=== PATIENT | male | born 1950 | race Caucasian/White ===

== ENCOUNTER 2021-03-19 00:51 | Inpatient (IN) | payer MEDICARE, OTHER, SELFPAY ==
[2021-03-19] VITALS (53 sets, daily range): BP systolic 43–164; BP diastolic 20–143; PULSE 41–121; RESP 11–20; TEMP 33.4–39.2; O2SAT 86–100; BMI 24.3
--- NOTE | 2021-03-19 01:22 | ED.RN ---
AT BEDSIDE, STATES PATIENT WAS IN BED AND SUDDENLY STARTED SNORING REALLY LOUD AND THEN YELLED OUT TWICE. WHEN WENT BACK TO BEDROOM STATES PATIENT WAS DRENCHED IN SWEAT AND DID NOT LOOK GOOD. STATES SHE TRIED TO FEEL A PULSE AND COULD NOT AND CALLED 911 AT THAT POINT.
--- NOTE | 2021-03-19 01:27 | CT_ITS ---
STUDY: CT BRAIN WITHOUT CONTRAST REASON FOR EXAM: Male, 71 years old. Altered mental status RADIATION DOSAGE (If Supplied By Facility): CTDIvol = ( 44.99 ) mGy, DLP = ( 897.35 ) mGycm TECHNIQUE: Transaxial CT imaging of the brain was performed without administration of intravenous contrast material. Individualized dose optimization techniques were used for this CT. COMPARISON: No relevant priors. FINDINGS: Normal soft tissue structures. Normal calvarium. Normal size ventricles and extra-axial spaces for the patient''s age. Normal white matter tracts of the cerebral hemispheres. Normal basal ganglia and thalami. Normal brainstem. Normal cerebellum. There may be a tiny subdural hematoma over the right opercular area. There are no findings of an acute ischemic infarction. Branch-white matter differentiation is maintained, but appears blunted. Scattered paranasal sinus mucosal thickening. Bilateral ocular lens extractions. CT/Brain/Head without Contrast IMPRESSION: Diffusely blunted branch-white matter differentiation is suspicious for developing generalized cerebral edema. Suspect tiny subdural hematoma over the right opercular area. Electronically Signed: Golden Lam MD at 3:08 EDT Tel , Service support ,
--- NOTE | 2021-03-19 01:27 | RAD_ITS ---
STUDY: X-RAY CHEST REASON FOR EXAM: Male, 71 years old. Dyspnea TECHNIQUE: Portable, upright, AP chest radiograph COMPARISON: None. FINDINGS: Defibrillator pads overlie the central chest and obscure the damien. Bilateral streaky perihilar opacities. There is no demonstrated pleural abnormality. Normal size heart. Normal mediastinum and samara. Normal visualized pulmonary arteries. There is no demonstrated abnormality of the visualized soft tissue structures of the upper abdomen. RAD/Chest 1 View (Portable) IMPRESSION: Endotracheal tube terminates between the clavicle heads. Enteric tube terminates over the GE junction. Right IJ central catheter terminates over the mid to lower SVC. Bilateral perihilar opacities may be edema secondary to recent cardiac arrest. Electronically Signed: Golden Lam MD at 3:29 EDT Tel , Service support ,
--- NOTE | 2021-03-19 01:28 | EKG12_ITS ---
Test Reason : DYSRHYTHMIA Blood Pressure : / mmHG Vent. Rate : 075 BPM Atrial Rate : 075 BPM P-R Int : 162 ms QRS Dur : 082 ms QT Int : 436 ms P-R-T Axes : 063 095 133 degrees QTc Int : 486 ms Normal sinus rhythm Marked ST abnormality, possible inferior subendocardial injury Marked ST abnormality, possible anterior subendocardial injury Prolonged QT Abnormal ECG Confirmed by JAXON BRUCE, FLO ([id number]), manager editorial FABI ANN ([id number]) on 03/26/2021 9:46:38 AM Referred By: ASHLEY Confirmed By:FLO COATES MD
[2021-03-19] MEDS: Norepinephrine 8 mg/250 mL 0.9% NS 9.4 MG CONT INF (01:36)
[2021-03-19] MEDS: 0.9% Normal Saline 1,000 ML 999 ML IV ×2 (01:37→01:38)
[2021-03-19 01:39] LABS: Absolute Lymphocyte Count 3.47 X10^3/uL (0.83-4.51); Absolute Neutrophil Count 0.8 X10^3/uL (2.0-7.7); Basophil# 0.01 X10^3/uL; Basophil% 0.2 % (0-1); Eosinophil# 0.01 X10^3/uL; Eosinophils% 0.2 % (0-5); Hemoglobin 12.1 g/dL (13.0-16.5); Lymphocyte # 3.47 X10^3/ul (0.83-4.51); Lymphocyte % 73.2 % (19-41); Mean Corp Hgb Conc 30.3 g/dL (32-36); Mean Corpuscular Hgb 29.7 pg (27.0-32.0); Monocyte# 0.42 X10^3/uL; Monocyte% 8.9 % (0-10); NRBC Flagged by Analyzer 0.4 % (0-5); Neutrophil # 0.75 X10^3/uL (2.7-7.7); Neutrophil % 15.8 % (47-70); POSITIVE DIFFERENTIAL YES; Platelet Count 116 K/mm3 (150-450); RBC Distribution Width CV 12.7 % (11.6-14.6); RBC Distribution Width SD 45.4 fl (35.1-43.9); Red Blood Count 4.08 M/mm3 (4.6-6.2); White Blood Count 4.7 K/mm3 (4.4-11.0)
[2021-03-19 01:42] LABS: International Normalized Ratio 1.4; Prothrombin Time (Protime)PT. 16.1 SECONDS (11.7-14.9)
[2021-03-19 01:43] LABS: Partial Thromboplast Time 47.6 Seconds (24.1-36.2)
[2021-03-19 01:52] LABS: Differential Indicated SCAN CRITERIA MET
[2021-03-19 01:53] LABS: Atypical Lymphocyte 1+ %
[2021-03-19 01:56] LABS: ALB/GLOB Ratio 0.7 RATIO (0.9-2.4); AST(SGOT) 85 U/L (15-37); Alanine Aminotransfer ALT/SGPT 99 U/L (16-61); Albumin, Serum 2.6 g/dL (3.2-5.0); Alkaline Phosphatase 105 U/L (45-117); Anion Gap 15 (5-15); BUN 31 mg/dL (7-18); BUN/Creat Ratio 16.2 RATIO (10-20); Calcium,Total 8.5 mg/dL (8.5-10.1); Chloride 106 mmol/L (98-107); Creatinine, Serum 1.91 mg/dL (0.70-1.30); EST Glomerular Filtration Rate 37 mL/min (>60); Est Glom Filt Rate - Afr Amer 45 mL/min (>60); Globulin 3.7 g/dL (2.2-4.2); Glucose 338 mg/dL (74-106); Potassium 3.8 mmol/L (3.5-5.1); Protein, Total 6.3 g/dL (6.4-8.2); Sodium Level 140 mmol/L (136-145); Troponin-I HS 21 pg/mL (3.0-78.0)
[2021-03-19 02:12] LABS: Lactic Acid 7.5 mmol/L (0.4-1.9)
--- NOTE | 2021-03-19 02:18 | EX.ED.CRITCA ---
HPI History of Present Illness Chief Complaint: CPR Informant: spouse/S.O. and EMS Onset/Context/Timing Onset: Today Context: Sudden Onset Timing: Continuous Narrative Narrative: Patient presents in cardiac arrest. states that she heard the patient snoring louder than usual. She went back to check on him and noticed he was unresponsive. She attempted to feel for a pulse and could not find any. She called 911 and upon EMS arrival patient was found to be unresponsive and pulseless. EMS followed ACLS protocols and defibrillated the patient for V. fib. Patient returned to [facility] after defibrillation. EMS administered multiple doses of epinephrine. CPR was in progress when EMS arrived to the emergency department. [facility] Medical History Arrhythmia Hypertension Home Medications atorvastatin 20 mg PO DAILY 03/19/21 [History Last Taken Unknown] diltiazem HCl 240 mg PO DAILY 03/19/21 [History Last Taken Unknown] lisinopril 40 mg PO DAILY 03/19/21 [History Last Taken Unknown] spironolactone 25 mg PO DAILY 03/19/21 [History Last Taken Unknown] tadalafil 5 mg PO DAILY 03/19/21 [History Last Taken Unknown] Allergy/AdvReac Type Severity Reaction Status Date / Time No Known Allergies Allergy Verified 03/19/21 01:30 Social History Smoking Status: Never smoker ROS ROS ED Review of Systems ROS Unobtainable: due to endotracheal tube EXAM Physical Exam Const Vital Signs: 03/19/21 00:52 03/19/21 01:10 03/19/21 01:14 Temperature Temperature Source Pulse Rate 41 L 109 H Pulse Rate [4] 90 Respiratory Rate 16 Respiratory Rate [4] 18 Respiratory Pattern Blood Pressure 62/40 L 104/30 L Blood Pressure [4] 92/49 L Blood Pressure Mean 47 54 Pulse Ox 86 94 Oxygen Delivery Method Ambu-Bag Ambu-Bag Fraction of Inspired Oxygen (FIO2) 03/19/21 01:16 03/19/21 01:20 03/19/21 01:23 Temperature 95.1 F L Temperature Source Core Pulse Rate 86 92 93 Pulse Rate [4] Respiratory Rate 16 16 16 Respiratory Rate [4] Respiratory Pattern Blood Pressure 74/36 L 164/70 H 143/58 H Blood Pressure [4] Blood Pressure Mean 48 101 86 Pulse Ox 96 92 96 Oxygen Delivery Method Ambu-Bag Ambu-Bag Ambu-Bag Fraction of Inspired Oxygen (FIO2) 03/19/21 01:27 03/19/21 01:36 03/19/21 01:39 Temperature 93.8 F L Temperature Source Core Pulse Rate 83 68 Pulse Rate [4] Respiratory Rate 14 16 Respiratory Rate [4] Respiratory Pattern Normal Blood Pressure 49/31 L 43/28 L Blood Pressure [4] Blood Pressure Mean 37 33 Pulse Ox 98 100 Oxygen Delivery Method Fraction of Inspired Oxygen (FIO2) 100 03/19/21 01:43 03/19/21 01:44 03/19/21 01:49 Temperature 93.1 F L Temperature Source Core Pulse Rate 63 Pulse Rate [4] Respiratory Rate 16 Respiratory Rate [4] Respiratory Pattern Blood Pressure 60/34 L 58/39 L Blood Pressure [4] Blood Pressure Mean 42 45 Pulse Ox 100 100 Oxygen Delivery Method Mechanical Ventilator Mechanical Ventilator Fraction of Inspired Oxygen (FIO2) 60 03/19/21 01:51 03/19/21 01:55 03/19/21 02:02 Temperature Temperature Source Pulse Rate 69 78 Pulse Rate [4] Respiratory Rate 14 Respiratory Rate [4] Respiratory Pattern Blood Pressure 66/40 L 72/39 L 73/40 L Blood Pressure [4] Blood Pressure Mean 48 50 51 Pulse Ox 99 Oxygen Delivery Method Fraction of Inspired Oxygen (FIO2) 03/19/21 02:03 03/19/21 02:25 03/19/21 02:48 Temperature Temperature Source Pulse Rate 71 89 81 Pulse Rate [4] Respiratory Rate 14 14 Respiratory Rate [4] Respiratory Pattern Blood Pressure 87/47 L 112/47 L 80/47 L Blood Pressure [4] Blood Pressure Mean 60 68 58 Pulse Ox 100 100 100 Oxygen Delivery Method Mechanical Ventilator Mechanical Ventilator Fraction of Inspired Oxygen (FIO2) 60 03/19/21 02:55 03/19/21 02:57 Temperature 96.8 F L Temperature Source Core Pulse Rate 91 Pulse Rate [4] Respiratory Rate 20 H 18 Respiratory Rate [4] Respiratory Pattern Blood Pressure 121/51 H Blood Pressure [4] Blood Pressure Mean 74 Pulse Ox 98 Oxygen Delivery Method Mechanical Ventilator Fraction of Inspired Oxygen (FIO2) 40 40 Positive well nourished and well developed General Appearance ED: well developed HEENT normocephalic and atraumatic Neck supple and no JVD Resp Resp Narrative: There were no spontaneous respirations noted. There are equal breath sounds with mechanical ventilation. Cardio regular rate Rate: tachycardic GI non-distended Palpation: soft Neuro Neuro Narrative: Patient is unresponsive to verbal or painful stimuli. Skin Lesions: no lesions Rashes: no rashes MDM MDM MDM Narrative Medical decision making narrative: Upon arrival, ACLS protocols were continued. Patient was intubated with a 7.5 ET tube to 23 cm at the lip using a glide scope. Patient was given multiple doses of epinephrine, atropine, and a dose of sodium bicarbonate. Patient did have return of spontaneous circulation. Patient was started on Levophed drip. This was titrated to maintain a blood pressure greater than 100 systolic. CBC was within normal limits. Comprehensive metabolic profile showed a creatinine of 1.91 and a BUN of 31. CO2 was 19. Anion gap was 15. Glucose was 338. Initial high-sensitivity troponin was normal. PT with INR and PTT were slightly elevated with an INR of 1.4 and PTT of 47.6. Lactic acid was elevated at 7.5. was agreeable to placement of a central venous catheter. The right anterior neck was cleaned and prepped in a sterile manner. Ultrasound guidance was used to place a triple-lumen catheter in the right internal jugular vein using Seldinger technique. This was sutured in place. Chest x-ray was obtained post procedure. There is 1 view. On my interpretation, there is no pneumothorax. The central lumen catheter is in place. The endotracheal tube is in good position. The orogastric tube ends at the GE junction. There is some developing interstitial edema. Radiologist also interpreted the x-ray and agrees. CT scan of the brain was ordered and shows some developing cerebral edema. There is questionable small subdural hematoma in the right opercular area. This was interpreted by the radiologist and reviewed by myself.. Urinalysis does not show any evidence of urinary tract infection. Case was discussed with the hospitalist. She will admit the patient to her service to ICU. She recommended consulting with cardiology to see if they would recommend an amiodarone drip. Case was discussed with Dr. Velazquez. He he does recommend an amiodarone drip. Patient will be admitted to ICU. Family understands and is agreeable with the plan. All questions were answered. Lab Data Attestation: I reviewed the patient's lab results. Labs: Laboratory Results - last 24 hr 03/19/21 03/19/21 03/19/21 00:55 00:55 00:55 WBC 4.7 RBC 4.08 L Hgb 12.1 L Hct 40.0 MCV 98.0 H MCH 29.7 MCHC 30.3 L RDW Std Deviation 45.4 H RDW Coeff of Syd 12.7 Plt Count 116 L MPV 11.0 Immature Gran % (Auto) 1.700 H Neut % (Auto) 15.8 L Lymph % (Auto) 73.2 H Citrus % (Auto) 8.9 Eos % (Auto) 0.2 Baso % (Auto) 0.2 Absolute Neuts (auto) 0.8 L Absolute Lymphs (auto) 3.47 Nucleated RBC % 0.4 Atypical Lymphocytes 1+ PT 16.1 H INR 1.4 APTT 47.6 H Sodium 140 Potassium 3.8 Chloride 106 Carbon Dioxide 19.0 L Anion Gap 15 BUN 31 H Creatinine 1.91 H Estim Creat Clear Calc 36.10 Est GFR (MDRD) Af Amer 45 L Est GFR (MDRD) Non-Af 37 L BUN/Creatinine Ratio 16.2 Glucose 338 H Lactic Acid Calcium 8.5 Total Bilirubin 0.20 AST 85 H ALT 99 H Alkaline Phosphatase 105 Troponin I High Sens 21 Total Protein 6.3 L Albumin 2.6 L Globulin 3.7 Albumin/Globulin Ratio 0.7 L Urine Color Urine Clarity Urine pH Ur Specific Pavilion Urine Protein Urine Glucose (UA) Urine Ketones Urine Occult Blood Urine Nitrite Urine Bilirubin Urine Urobilinogen Ur Leukocyte Esterase Urine RBC Urine WBC Ur Squamous Epith Cells Urine Bacteria Urine Mucus 03/19/21 03/19/21 01:40 02:15 WBC RBC Hgb Hct MCV MCH MCHC RDW Std Deviation RDW Coeff of Syd Plt Count MPV Immature Gran % (Auto) Neut % (Auto) Lymph % (Auto) Citrus % (Auto) Eos % (Auto) Baso % (Auto) Absolute Neuts (auto) Absolute Lymphs (auto) Nucleated RBC % Atypical Lymphocytes PT INR APTT Sodium Potassium Chloride Carbon Dioxide Anion Gap BUN Creatinine Estim Creat Clear Calc Est GFR (MDRD) Af Amer Est GFR (MDRD) Non-Af BUN/Creatinine Ratio Glucose Lactic Acid 7.5 H* Calcium Total Bilirubin AST ALT Alkaline Phosphatase Troponin I High Sens Total Protein Albumin Globulin Albumin/Globulin Ratio Urine Color Yellow Urine Clarity Clear Urine pH 5.0 Ur Specific Pavilion 1.025 Urine Protein 30 H Urine Glucose (UA) Normal Urine Ketones Negative Urine Occult Blood 250 H Urine Nitrite Negative Urine Bilirubin Negative Urine Urobilinogen Normal Ur Leukocyte Esterase 25 H Urine RBC 0-5 SEEN Urine WBC 0-5 SEEN Ur Squamous Epith Cells 0 SEEN Urine Bacteria 0 SEEN Urine Mucus 1+ ABG Data ABG results: ABG 03/19/21 01:46 Specimen Type ART Sample Site R Radial pH 7.08 L* Bicarbonate Actual 14.7 L Total CO2 16 Base Excess -15 L O2 Saturation 92 L O2 % 60 ABG pCO2 49.6 H ABG pO2 86 [place] Test N/A Respiration Rate 14 O2 Delivery Device Adult Vent Vent Mode AC Tidal Volume 450 POC PEEP 5 Crit Call To/Read Back Yes Blood Gas Notified Whom Dr Olmedo Radiography Diagnostic Testing: Clinical Impression(s) from Imaging Studies Brain CT 03/19/21 01:27 IMPRESSION: Diffusely blunted sebastian-white matter differentiation is suspicious for developing generalized cerebral edema. Suspect tiny subdural hematoma over the right opercular area. Electronically Signed: Golden Lam MD at 3:08 EDT Tel , Service support , Chest X-Ray 03/19/21 01:27 IMPRESSION: Endotracheal tube terminates between the clavicle heads. Enteric tube terminates over the GE junction. Right IJ central catheter terminates over the mid to lower SVC. Bilateral perihilar opacities may be edema secondary to recent cardiac arrest. Electronically Signed: Golden Lam MD at 3:29 EDT Tel , Service support , EKG Initial EKG: Attestation: I personally reviewed and interpreted this EKG as follows: Interpretation: Sinus Rhythm (75) and S-T Depression (II, III, aVF, V2 through V6) Prior EKG tracings: not available for review Critical Care Time Critical Care Time: Yes Critical care time (excluding procedures): 30-74 minutes (64), Including time spent:, Discussing w/Patient &/or Family/Proposal Analyst, Discussing w/Consultants, Arranging Admission or Transfer and Performing Direct Patient Care at Bedside Discharge Plan Dx/Rx/DC Orders Clinical Impression: Cardiac arrest with successful resuscitation, Lactic acidosis, Acute kidney injury, Respiratory failure Disposition Disposition: Acute Care [facility]
[2021-03-19 02:21] LABS: Bacteria 0 SEEN /hpf (None Seen); Squamous Epithelial Cells - UA 0 SEEN /hpf (0-5)
[2021-03-19 02:22] LABS: Color, Urine Yellow (Yellow); Glucose, Dipstick Normal (Normal); Ketone-Dipstick Negative (Negative); Leukocyte Esterase-Dipstick 25 /ul (Negative); Nitrite-Dipstick Negative (Negative); Occult Blood-Urine 250 /ul (Negative); Protein-Dipstick 30 mg/dl (Negative); Specific Gravity, Urine 1.025 (1.002-1.030); Urine Bilirubin Dipstick Negative (Negative); Urine Clarity Clear (Clear); Urine Urobilinogen Normal (Normal)
--- NOTE | 2021-03-19 03:22 | PCM.HP.STD ---
HPI - General General Date of Admission: 03/19/21 Date of Service: 03/19/21 Chief Complaint: CPR w/ ROSC HPI Narrative The patient is a 71 y/o M w/ PMHx: HTN, HLD who presents to the [facility] ED on 03/19/21 with history of going to bed the evening prior, was reportedly snoring much more loudly than normal and his upon checking on him noted his eyes appeared open but he was unresponsive and he was coated in sweat more pale in appearance prompting her to call EMS. EMS did not feel a pulse prompting CPR immediately. He reportedly was administered amiodarone, epi with at least one round of shocks. Presenting in cardiac arrest with initial assessment with noted pulseless electrical activity, administered epinephrine serial rounds as well as bicarb with ongoing CPR with repeat check similar with eventual intubation and fortunately eventual ROSC with sinus rhythm with transient significant hypotension and initiated on norepinephrine. While in the ED patient did have episodes of VF. Additionally, while in the ED upon placement of patient NGT he had notable bloody output. Family denies any recent abdominal pain complaints. 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 Work-up in the ED included upon initial arrival T 95.1, heart rate 90, BP 92/49, respiratory rates 16, 94% on Ambu bag with eventual intubation, most recent vital signs T 96.8 cor, heart rate 85, BP 104/74, respiratory rate 17, 95% mechanically ventilated, CBC with WBC 4.7, hemoglobin 12.1, platelet 116 with left shift, coags with PT 16.1, INR 1.4, PTT 47.6, ABG with pH 7.08, bicarb 14.7, O2 saturation 92%, PCO2 49.6, PO2 86, CMP with carbon oxide 19, BUN/creatinine 31/1.91, glucose 338, lactic acid 7.5, AST/ALT 85/99, initial cardiac enzyme 21 with repeat 2876, urinalysis not marked appearing, rapid Covid antigen pending, CT head with diffusely blunted sebastian-white matter differentiation suspicious for generalized cerebral edema development, suspected tiny subdural hematoma over the right opicular area, Chest x-ray with ET tube between the clavicle heads, enteric tube terminating over the GE junction, right IJ central catheter in place, bilateral perihilar opacities possibly edema secondary to recent cardiac arrest, EKG with SR with non-specific changes without comparison. PFSH Medical History (Updated 03/19/21 @ 05:[address] Malorie Fonseca MD) Arrhythmia HLD (hyperlipidemia) Hypertension Home Medications atorvastatin 20 mg PO DAILY 03/19/21 [History Last Taken Unknown] diltiazem HCl 240 mg PO DAILY 03/19/21 [History Last Taken Unknown] lisinopril 40 mg PO DAILY 03/19/21 [History Last Taken Unknown] spironolactone 25 mg PO DAILY 03/19/21 [History Last Taken Unknown] tadalafil 5 mg PO DAILY 03/19/21 [History Last Taken Unknown] Allergy/AdvReac Type Severity Reaction Status Date / Time No Known Allergies Allergy Verified 03/19/21 01:30 Family History (Updated 03/19/21 @ 05:[address] Malorie Fonseca MD) Mother Hypertension Father Heart disease Surgical History (Updated 03/19/21 @ 05:[address] Malorie Fonseca MD) No history of previous surgery Social History (Updated 03/19/21 @ 05:[address] Malorie Fonseca MD) household members: spouse Smoking Status: Never smoker alcohol intake: current alcohol intake frequency: holidays/special occasions only substance use type: does not use ROS Review of Systems ROS Unobtainable: due to endotracheal tube Vital Signs Vital Signs Vital Signs: 03/19/21 00:52 03/19/21 01:10 03/19/21 01:14 Temperature Temperature Source Pulse Rate 41 L 109 H Pulse Rate [4] 90 Respiratory Rate 16 Respiratory Rate [4] 18 Respiratory Pattern Blood Pressure 62/40 L 104/30 L Blood Pressure [4] 92/49 L Blood Pressure Mean 47 54 Pulse Ox 86 94 Oxygen Delivery Method Ambu-Bag Ambu-Bag Fraction of Inspired Oxygen (FIO2) 03/19/21 01:16 03/19/21 01:20 03/19/21 01:23 Temperature 95.1 F L Temperature Source Core Pulse Rate 86 92 93 Pulse Rate [4] Respiratory Rate 16 16 16 Respiratory Rate [4] Respiratory Pattern Blood Pressure 74/36 L 164/70 H 143/58 H Blood Pressure [4] Blood Pressure Mean 48 101 86 Pulse Ox 96 92 96 Oxygen Delivery Method Ambu-Bag Ambu-Bag Ambu-Bag Fraction of Inspired Oxygen (FIO2) 03/19/21 01:27 03/19/21 01:36 03/19/21 01:39 Temperature 93.8 F L Temperature Source Core Pulse Rate 83 68 Pulse Rate [4] Respiratory Rate 14 16 Respiratory Rate [4] Respiratory Pattern Normal Blood Pressure 49/31 L 43/28 L Blood Pressure [4] Blood Pressure Mean 37 33 Pulse Ox 98 100 Oxygen Delivery Method Fraction of Inspired Oxygen (FIO2) 100 03/19/21 01:43 03/19/21 01:44 03/19/21 01:49 Temperature 93.1 F L Temperature Source Core Pulse Rate 63 Pulse Rate [4] Respiratory Rate 16 Respiratory Rate [4] Respiratory Pattern Blood Pressure 60/34 L 58/39 L Blood Pressure [4] Blood Pressure Mean 42 45 Pulse Ox 100 100 Oxygen Delivery Method Mechanical Ventilator Mechanical Ventilator Fraction of Inspired Oxygen (FIO2) 60 03/19/21 01:51 03/19/21 01:55 03/19/21 02:02 Temperature Temperature Source Pulse Rate 69 78 Pulse Rate [4] Respiratory Rate 14 Respiratory Rate [4] Respiratory Pattern Blood Pressure 66/40 L 72/39 L 73/40 L Blood Pressure [4] Blood Pressure Mean 48 50 51 Pulse Ox 99 Oxygen Delivery Method Fraction of Inspired Oxygen (FIO2) 03/19/21 02:03 03/19/21 02:25 03/19/21 02:48 Temperature Temperature Source Pulse Rate 71 89 81 Pulse Rate [4] Respiratory Rate 14 14 Respiratory Rate [4] Respiratory Pattern Blood Pressure 87/47 L 112/47 L 80/47 L Blood Pressure [4] Blood Pressure Mean 60 68 58 Pulse Ox 100 100 100 Oxygen Delivery Method Mechanical Ventilator Mechanical Ventilator Fraction of Inspired Oxygen (FIO2) 60 03/19/21 02:55 03/19/21 02:57 Temperature 96.8 F L Temperature Source Core Pulse Rate 91 Pulse Rate [4] Respiratory Rate 20 H 18 Respiratory Rate [4] Respiratory Pattern Blood Pressure 121/51 H Blood Pressure [4] Blood Pressure Mean 74 Pulse Ox 98 Oxygen Delivery Method Mechanical Ventilator Fraction of Inspired Oxygen (FIO2) 40 40 Weight Weight: 169 lb 1.513 oz Body Mass Index (BMI) 24.3 Physical Exam Narrative Physical Examination: General: Intubated, sedated, laying in the ED bed, no acute distress. Skin: Normal color, normal turgor, no icterus, no cyanosis. HEENT: AT/NC, EOM unable to be assessed given intubated and sedated status, PERRLA, moderately dry MM, intubated, no carotid bruits or JVD noted. Lungs: Symmetric rise, diminished bases, intubated and sedated, no rales, ronchi or wheezing. Heart: Regular rate and rhythm; no gallop, rub audible. Abdomen: Soft, NTTP, ND, distant hypoactive BS, no obvious evidence of HSM. Extremities: No cyanosis, clubbing, or edema. Neurological: Intubated, sedated, cognitive function not baseline intact, pupils equally reactive to light and accommodation, cranial nerves unable to be assessed given intubated and sedated status, not moving extremities given this history, strength accordingly severely global decrease. Psychiatric: Affect appears flat, no acute evidence of depressive or anxiety feelings. Results Lab / Micro Data Result Diagrams: 03/19/21 05:15 03/19/21 00:55 Labs: Laboratory Results - last 24 hr 03/19/21 00:55: WBC 4.7, RBC 4.08 L, Hgb 12.1 L, Hct 40.0, MCV 98.0 H, MCH 29.7, MCHC 30.3 L, RDW Std Deviation 45.4 H, RDW Coeff of Syd 12.7, Plt Count 116 L, MPV 11.0, Immature Gran % (Auto) 1.700 H, Neut % (Auto) 15.8 L, Lymph % (Auto) 73.2 H, Mckenzie % (Auto) 8.9, Eos % (Auto) 0.2, Baso % (Auto) 0.2, Absolute Neuts (auto) 0.8 L, Absolute Lymphs (auto) 3.47, Nucleated RBC % 0.4, Atypical Lymphocytes 1+ 03/19/21 00:55: PT 16.1 H, INR 1.4, APTT 47.6 H 03/19/21 00:55: Sodium 140, Potassium 3.8, Chloride 106, Carbon Dioxide 19.0 L, Anion Gap 15, BUN 31 H, Creatinine 1.91 H, Estim Creat Clear Calc 36.10, Est GFR (MDRD) Af Amer 45 L, Est GFR (MDRD) Non-Af 37 L, BUN/Creatinine Ratio 16.2, Glucose 338 H, Calcium 8.5, Total Bilirubin 0.20, AST 85 H, ALT 99 H, Alkaline Phosphatase 105, Troponin I High Sens 21, Total Protein 6.3 L, Albumin 2.6 L, Globulin 3.7, Albumin/Globulin Ratio 0.7 L 03/19/21 01:40: Lactic Acid 7.5 H* 03/19/21 02:15: Urine Color Yellow, Urine Clarity Clear, Urine pH 5.0, Ur Specific Herreid 1.025, Urine Protein 30 H, Urine Glucose (UA) Normal, Urine Ketones Negative, Urine Occult Blood 250 H, Urine Nitrite Negative, Urine Bilirubin Negative, Urine Urobilinogen Normal, Ur Leukocyte Esterase 25 H Assessment & Plan Assessment/Plan (1) Cardiac arrest with successful resuscitation: (2) Lactic acidosis: (3) Acute kidney injury: (4) Respiratory failure: QUALIFIERS: Chronicity: acute Respiratory failure complication: hypoxia and hypercapnia Qualified Code(s): J96.01 - Acute respiratory failure with hypoxia; J96.02 - Acute respiratory failure with hypercapnia (5) GI bleed: QUALIFIERS: GI bleed type/associated pathology: unspecified gastrointestinal hemorrhage type Qualified Code(s): K92.2 - Gastrointestinal hemorrhage, unspecified PLAN: The patient is a 71 y/o M w/ PMHx: HTN, HLD who presents to the [facility] ED on 03/19/21 with history of going to bed the evening prior, was reportedly snoring much more loudly than normal and his upon checking on him noted his eyes appeared open but he was unresponsive and he was coated in sweat more pale in appearance prompting her to call EMS. EMS did not feel a pulse prompting CPR immediately. 1. Cardiopulmonary arrest with ROSC with Cardiogenic Shock and VF with elevated cardiac enzymes/NSTEMI: EKG in ED w/ sinus rhythm with nonspecific changes with no comparison, CXR w/ lateral streaky perihilar opacities with no demonstrated pleural abnormality, normal heart size. Trop elevated, CT of the head with questionable tiny subdural hematoma as noted however significantly also noted findings concerning for generalized development of cerebral edema which portends poor prognosis. Will admit to the ICU given severity of presentation and instability, continue intubated and sedated status, uniforms sales representative consultation as well as cardiology consultation, maintain on a monitored bed, continue serial cardiac enzymes and EKGs, obtain magnesium level upon admission, request echocardiogram, request UDS, will continue amiodarone drip, continued on levophed, will hold on ASA or initiation heparin drip/lovenox secondary to #2 and possibly #3. 2. Acute GI Bleed w/ resultant Acute Blood Loss Anemia: Will maintain on IVFs, will obtain serial H+Hs, will maintain on IV PPI, holding any anticoagulation or antiplt therapy secondary to this history and possibly #3, GI consulted and pending. 3. Questionable tiny subdural hematoma over the right opercular area: CT of the head with questionable tiny subdural hematoma over the right opercular area however reviewed with the ED physician and given severity of patient and instability with shock requiring pressor therapies and family preference at this time admit to the ICU and continue treatments as noted, plan repeat CT of the head and if truly noted subdural hematoma and stable from #1, #2 May need to consider transfer if appropriate. 4. Acute kidney injury: Secondary to acute presentation #1 with hypoperfusion. Admission BUN/Cr 31/1.91, prior baseline creatinine noted to be normal per family but no baseline available. Will hydrate, hold nephrotoxic medications and repeat chemistry in AM. If no improvement would plan FeNa and renal ultrasound assessment. 5. Lactic acidosis: Admission lactic acid 7.5, associated with #1 with hypoperfusion, shock and hypoxemia, will continue to trend per facility protocol, maintain on norepinephrine. 6. Elevated LFTs: Admission AST/ALT 85/99, likely secondary to #1 with hypoperfusion, shock and hypoxemia, continue to treat as noted above and repeat CMP in AM. 7. Hyperglycemia: Glucose 338, unclear if associate with acute presentation however hemoglobin A1c will be obtained and will maintain on every 6 hour insulin sliding scale with Accu-Cheks in the interim. 8. Hypertension: Holding regimen as noted above given presentation, resume once appropriate. 9. Hyperlipidemia: Continue home statin regimen. AM FLP. 10. DVT prophylaxis: SCDs, deferring any chemoprophylaxis or anticoagulation given above. 11. CODE status: Patient intubated upon presentation however given severity of presentation, discussed CODE status at length including difference between FULL code, DNR-CCA and DNR-CC status. Following discussions about the differences in these status, requested Full Code status. Advanced Care Planning Face to Face Time: 16 minutes. Charges/Coding Visit Charges Inpatient E&M: 04220 Init Hosp L3 Procedures Hospitalists Procedures: 26228 Advncd Care Plan 30 Min
[2021-03-19 03:32] LABS: Red Blood Cells-Urine 0-5 SEEN /hpf (0-5); White Blood Cells 0-5 SEEN /hpf (0-5)
[2021-03-19 03:33] LABS: Mucous, Urine 1+ /hpf (<or=2+)
[2021-03-19 03:33] LABS: Base Excess -15 mmol/L (-2 to +2); Bicarbonate 14.7 mmol/L (22-26); Blood Gas Specimen Type ART; FI02 60; Mode AC; O2 Delivery Device Adult Vent; PEEP 5; PO2 86 mmHG (75-100); RR 14; SITE R Radial; SO2 92 % (95-99); Total Carbon Dioxide 16 mmol/L; Vt 450; pCO2 49.6 mmHg (35-45); pH 7.08 (7.35-7.45)
[2021-03-19 03:49] LABS: Troponin-I HS 2876 pg/mL (3.0-78.0)
--- NOTE | 2021-03-19 04:43 | ECHOCS_ITS ---
Reason For Study: Cardiac Arrest Procedure This was a 2D Doppler, Color Flow transthoracic echocardiogram. Very technically difficult due to patients condition. Limited views obtained, contrast injection performed. Exam performed portable in ICU/CCU. Left Ventricle Normal LV size. Left ventricular systolic function is hyperdynamic. The estimated ejection fraction is 70 %. Right Ventricle Normal RV size. Normal systolic function. Pericardium/Pleural No pericardial effusion. Medication Diluted definity 5ml given slow IV push to enhance endocardial definition. ECHO/Echo Complete W/ Contrast Interpretation Summary Normal LV size. Left ventricular systolic function is hyperdynamic. The estimated ejection fraction is 70 %. The study was technically limited. The study was technically difficult. Contras t injection was performed. Ordering Physician: Malorie Fonseca Referring Physician: out of [facility] Performed By: Jose Yang RCS
[2021-03-19] MEDS: Chlorhexidine 15 ML PO ×2 (04:55→10:08)
[2021-03-19 05:28] LABS: Absolute Lymphocyte Count 1.28 X10^3/uL (0.83-4.51); Absolute Neutrophil Count 11.6 X10^3/uL (2.0-7.7); Basophil# 0.05 X10^3/uL; Basophil% 0.4 % (0-1); Eosinophil# 0.03 X10^3/uL; Eosinophils% 0.2 % (0-5); Hematocrit 45.6 % (40-54); Hemoglobin 14.8 g/dL (13.0-16.5); Lymphocyte # 1.28 X10^3/ul (0.83-4.51); Lymphocyte % 9.3 % (19-41); Mean Corp Hgb Conc 32.5 g/dL (32-36); Mean Corpuscular Hgb 29.8 pg (27.0-32.0); Mean Corpuscular Volume 91.8 fL (80-94); Mean Platelet Vol. 9.9 fl (6.2-12.0); Monocyte# 0.57 X10^3/uL; Monocyte% 4.1 % (0-10); NRBC Flagged by Analyzer 0 % (0-5); Neutrophil % 83.8 % (47-70); Platelet Count 243 K/mm3 (150-450); RBC Distribution Width CV 12.9 % (11.6-14.6); RBC Distribution Width SD 43.9 fl (35.1-43.9); Red Blood Count 4.97 M/mm3 (4.6-6.2); White Blood Count 13.8 K/mm3 (4.4-11.0)
[2021-03-19 05:42] LABS: Amphetamine Urine VISTA NEGATIVE (<1000 ng/mL); Barbiturate Urine VISTA NEGATIVE (< 200 ng/mL); Benzodiazepine Urine VISTA NEGATIVE (< 200 ng/mL); Cocaine Urine VISTA NEGATIVE (< 300 ng/mL); Ecstacy Urine VISTA NEGATIVE (< 500 ng/mL); Methadone Urine VISTA NEGATIVE (< 300 ng/mL); PCP Urine VISTA NEGATIVE (< 25 ng/mL); THC Urine VISTA NEGATIVE (< 50 ng/mL); Vista UDS pH Range 5
[2021-03-19 05:44] LABS: Reflex Lactate? Y
--- NOTE | 2021-03-19 05:55 | EKG12_ITS ---
Test Reason : ADMISSION EKG Blood Pressure : / mmHG Vent. Rate : 085 BPM Atrial Rate : 085 BPM P-R Int : 148 ms QRS Dur : 084 ms QT Int : 390 ms P-R-T Axes : 051 077 066 degrees QTc Int : 464 ms Normal sinus rhythm Normal ECG Confirmed by JAXON BRUCE, FLO ([id number]), video effects editor FABI ANN ([id number]) on 03/26/2021 9:41:10 AM Referred By: SHELBY Confirmed By:FLO COATES MD
[2021-03-19 06:31] LABS: ALB/GLOB Ratio 0.7 RATIO (0.9-2.4); AST(SGOT) 267 U/L (15-37); Alanine Aminotransfer ALT/SGPT 205 U/L (16-61); Albumin, Serum 2.3 g/dL (3.2-5.0); Alkaline Phosphatase 153 U/L (45-117); Anion Gap 10 (5-15); BUN 31 mg/dL (7-18); BUN/Creat Ratio 14.6 RATIO (10-20); Calcium,Total 6.9 mg/dL (8.5-10.1); Chloride 115 mmol/L (98-107); Cholesterol 149 mg/dL (200); Creatinine, Serum 2.13 mg/dL (0.70-1.30); EST Glomerular Filtration Rate 33 mL/min (>60); Est Glom Filt Rate - Afr Amer 40 mL/min (>60); Estimated Creatinine Clearance 32.37 ml/min; Globulin 3.5 g/dL (2.2-4.2); Glucose 243 mg/dL (74-106); High Density Lipoprotein 58 mg/dL; Magnesium 1.7 mg/dL (1.6-2.6); Potassium 4.5 mmol/L (3.5-5.1); Protein, Total 5.8 g/dL (6.4-8.2); Sodium Level 141 mmol/L (136-145); Triglycerides 101 mg/dL; Very Low Density Lipoprotein 20 mg/dL (5-40)
[2021-03-19 06:42] LABS: M R Staph aureus DNA By PCR Negative (Negative); Probe Check PASS; Specimen Processing Control PASS
[2021-03-19] MEDS: 0.9% Normal Saline 1,000 ML 100 ML IV (06:52)
[2021-03-19 06:56] LABS: Allen Test Positive; Base Excess -16 mmol/L (-2 to +2); Bicarbonate 11.2 mmol/L (22-26); Blood Gas Specimen Type ART; FI02 50; Mode CPAP/PS; O2 Delivery Device Adult Vent; PEEP 5; PO2 88 mmHG (75-100); PS 5; SITE L Radial; SO2 95 % (95-99); Total Carbon Dioxide 12 mmol/L; pH 7.23 (7.35-7.45)
--- NOTE | 2021-03-19 06:56 | CON.PCM.CC_ITS ---
Assessment & Plan Assessment/Plan (1) Cardiac arrest with successful resuscitation: PLAN: RECOMMENDATIONS: 1. Continue current supportive measures including invasive mechanical ventilatory support. 2. Trend troponins and obtain echocardiogram. 3. Await cardiology consultation. 4. Continue PPI therapy twice daily. Hold on tube feed initiation for now. 5. Continue Levophed to maintain hemodynamic stability. Vasopressin can be initiated as well, if clinically indicated. 6. Continue amiodarone as ordered. 7. Continue to avoid all sedating medications. IMPRESSIONS: 1. Acute combined respiratory failure status post cardiac arrest The patient presented with an out of hospital V. fib cardiac arrest. The patient was subsequently intubated as a consequence of the aforementioned. Cardiology has been consulted to evaluate the patient. Will continue to trend troponins and obtain echocardiogram. The patient will be continued on invasive mechanical ventilatory support with FiO2 weaned as tolerated to maintain saturations at or above 90%. 2. 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 This has been discussed with the patient's family at length. Overall prognosis appears quite poor. However, they would like to wait an additional 48 hours for prognostication purposes. We will continue to hold all sedating medications. 3. Cardiogenic versus distributive shock Unclear etiology for the patient's hypotension. However, a cardiac etiology is certainly a possibility, given his presenting signs and symptoms. The patient will be continued on vasopressor support, as needed, to maintain a mean arterial pressure at or above 65 mmHg. Echocardiogram is currently pending. 4. Multisystem organ dysfunction/lactic acidemia/metabolic acidosis Likely secondary to hemodynamic instability in the setting of #1 and #3. Continue current supportive measures including vasopressor support in an attempt to maintain hemodynamic stability. Continue to monitor liver and renal function accordingly. 5. Possible upper GI bleed The patient was noted to have bright red blood from his OG tube upon placement. However, at the present time, his blood counts are stable. We will continue PPI therapy twice daily as ordered. Continue to monitor H&H daily. There is no indication for urgent transfusion of blood products at this time. 6. History of paroxysmal atrial fibrillation/hypertension/hyperlipidemia Complicates care, management, recovery and prognosis. Continue to hold home medications for now. Continue to hold on initiation of tube feeds, given conc kristy for upper GI bleed. CODE status: Discussed CODE status at length including difference between FULL code, DNR-CCA and DNR-CC status. Following discussions about the differences in these status, patient's family requested DNR CCA CODE STATUS. TIME: 43 minutes of critical care time, independent of procedures, was spent addressing the patient's acute combined respiratory failure status post cardiac arrest, encephalopathy, cardiogenic versus distributive shock, multisystem organ dysfunction, possible upper GI bleed, review of all data and collaboration with the care team. ([id number]) HPI Consult Data Date of Consult: 03/19/21 HPI Narrative Reason for Consultation: Acute respiratory failure status post cardiac arrest HPI Narrative: The patient is a 71-year-old male, with a history as outlined below, who presented to the emergency department on March 19 after being found unresponsive by his in bed. I did speak at length with the patient's this morning. She indicated to me that the patient went to lay in bed last night and read a book. A short time later, she could hear him from down the [place]oks snoring very loudly. When she went to check on him, he was slumped over in bed and nonresponsive. She did report to me that he has had a history of atrial fibrillation in the past. The patient's subsequently contacted EMS. According to documentation, the patient was in ventricular fibrillation and required defibrillation. ACLS protocol was followed and the patient was tra nsferred to the ED with CPR still in progress. On presentation to the emergency department, the patient was noted to be hypotensive, hypothermic and hypoxemic. Initial laboratory evaluation revealed no evidence of a leukocytosis. The patient was thrombocytopenic with a platelet count of 116,000. Coagulation profile revealed an INR of 1.4. Chemistry profile was notable for a bicarbonate of 19 and creatinine of 1.91. Lactate was elevated at 7.5. AST and ALT were mildly increased. Troponin was increased at 2876. Urine analysis was unremarkable. Toxicology screen was negative. CT head revealed loss of sebastian/white matter attenuation concerning for cerebral edema. Of note, the patient was intubated while in the emergency department. In addition, return of spontaneous circulation was achieved at some point during his emergency department stay as well. The patient did receive supplemental IV fluid hydration and was started on amiodarone. Additionally, the patient had to be initiated on vasopressor support to maintain hemodynamic stability. [facility] Medical History Arrhythmia HLD (hyperlipidemia) Hypertension Home Medications atorvastatin 20 mg PO DAILY 03/19/21 [History Last Taken Unknown] diltiazem HCl 240 mg PO DAILY 03/19/21 [History Last Taken Unknown] lisinopril 40 mg PO DAILY 03/19/21 [History Last Taken Unknown] spironolactone 25 mg PO DAILY 03/19/21 [History Last Taken Unknown] tadalafil 5 mg PO DAILY 03/19/21 [History Last Taken Unknown] Allergy/AdvReac Type Severity Reaction Status Date / Time No Known Allergies Allergy Verified 03/19/21 01:30 Family History Mother Hypertension Father Heart disease Surgical History No history of previous surgery Social History household members: spouse Smoking Status: Never smoker alcohol intake: current alcohol intake frequency: holidays/special occasions only substance use type: does not use ROS Review of Systems ROS Unobtainable: due to encephalopathy and due to endotracheal tube Physical Exam Const Constitutional Narrative: Patient is currently initiating spontaneous breaths on CPAP. General Appearance: intubated and patient mechanically ventilated Orientation / Consciousness: obtunded Exam Limitations: altered mental status HEENT Mouth: endotracheal tube in place and OG tube in place Eyes Pupil: dilated and fixed Neck supple General: trachea midline Chest inspection of chest normal Resp Effort and Inspection: abnormal respiratory pattern and tachypneic Auscultation: diminished lung sounds; Negative for rales, rhonchi or wheezes Cardio regular rate and regular rhythm GI normal to inspection, nondistended, normoactive bowel sounds Extremity no clubbing, cyanosis or edema Skin no rashes or lesions noted Neuro Neuro Narrative: The patient is currently comatose on the vent. There is no response to verbal or noxious stimulation. No gag reflex present. Lab / Micro Data Result Diagrams: 03/19/21 05:15 03/19/21 05:15 Labs: Laboratory Results - last 24 hr 03/19/21 00:55: WBC 4.7, RBC 4.08 L, Hgb 12.1 L, Hct 40.0, MCV 98.0 H, MCH 29.7, MCHC 30.3 L, RDW Std Deviation 45.4 H, RDW Coeff of Syd 12.7, Plt Count 116 L, MPV 11.0, Immature Gran % (Auto) 1.700 H, Neut % (Auto) 15.8 L, Lymph % (Auto) 73.2 H, [place] % (Auto) 8.9, Eos % (Auto) 0.2, Baso % (Auto) 0.2, Absolute Neuts (auto) 0.8 L, Absolute Lymphs (auto) 3.47, Nucleated RBC % 0.4, Atypical Lymphocytes 1+ 03/19/21 00:55: PT 16.1 H, INR 1.4, APTT 47.6 H 03/19/21 00:55: Sodium 140, Potassium 3.8, Chloride 106, Carbon Dioxide 19.0 L, Anion Gap 15, BUN 31 H, Creatinine 1.91 H, Estim Creat Clear Calc 36.10, Est GFR (MDRD) Af Amer 45 L, Est GFR (MDRD) Non-Af 37 L, BUN/Creatinine Ratio 16.2, Glucose 338 H, Calcium 8.5, Total Bilirubin 0.20, AST 85 H, ALT 99 H, Alkaline Phosphatase 105, Troponin I High Sens 21, Total Protein 6.3 L, Albumin 2.6 L, Globulin 3.7, Albumin/Globulin Ratio 0.7 L 03/19/21 01:40: Lactic Acid 7.5 H* 03/19/21 02:15: Urine Color Yellow, Urine Clarity Clear, Urine pH 5.0, Ur Specific [place] 1.025, Urine Protein 30 H, Urine Glucose (UA) Normal, Urine Ketones Negative, Urine Occult Blood 250 H, Urine Nitrite Negative, Urine Bilirubin Negative, Urine Urobilinogen Normal, Ur Leukocyte Esterase 25 H, Urine RBC 0-5 SEEN, Urine WBC 0-5 SEEN, Ur Squamous Epith Cells 0 SEEN, Urine Bacteria 0 SEEN, Urine Mucus 1+ 03/19/21 02:49: Troponin I High Sens 2876 H* 03/19/21 05:15: Sodium 141, Potassium 4.5, Chloride 115 H, Carbon Dioxide 16.0 L , Anion Gap 10, BUN 31 H, Creatinine 2.13 H, Estim Creat Clear Calc 32.37, Est GFR (MDRD) Af Amer 40 L, Est GFR (MDRD) Non-Af 33 L, BUN/Creatinine Ratio 14.6, Glucose 243 H, Calcium 6.9 L, Magnesium 1.7, Total Bilirubin 0.30, AST 267 H, ALT 205 H, Alkaline Phosphatase 153 H, Total Protein 5.8 L, Albumin 2.3 L, Globulin 3.5, Albumin/Globulin Ratio 0.7 L, Triglycerides 101, Cholesterol 149, LDL Cholesterol 71, VLDL Cholesterol 20, HDL Cholesterol 58 03/19/21 05:15: Urine Opiates Screen NEGATIVE, Urine Methadone Screen NEGATIVE, Ur Barbiturates Screen NEGATIVE, Ur Phencyclidine Scrn NEGATIVE, Ur Amphetamines Screen NEGATIVE, U Methamphetamin-MDMA NEGATIVE, U Benzodiazepines Scrn NEGATIVE, Urine Cocaine Screen NEGATIVE, U Cannabinoids Screen NEGATIVE, Ur Drug Screen Comment 03/19/21 05:15: WBC 13.8 H, RBC 4.97, Hgb 14.8, Hct 45.6, MCV 91.8 D, MCH 29.8, MCHC 32.5 D, RDW Std Deviation 43.9, RDW Coeff of Syd 12.9, Plt Count 243, MPV 9.9, Immature Gran % (Auto) 2.200 H, Neut % (Auto) 83.8 H, Lymph % (Auto) 9.3 L, [place] % (Auto) 4.1, Eos % (Auto) 0.2, Baso % (Auto) 0.4, Absolute Neuts (auto) 11.6 H, Absolute Lymphs (auto) 1.28, Nucleated RBC % 0 03/19/21 05:15: MRSA (PCR) Negative ABG Data ABG results: ABG 03/19/21 03/19/21 01:46 06:50 Specimen Type ART ART Sample Site R Radial L Radial pH 7.08 L* 7.23 L Bicarbonate Actual 14.7 L 11.2 L Total CO2 16 12 Base Excess -15 L -16 L O2 Saturation 92 L 95 O2 % 60 50 ABG pCO2 49.6 H 27.0 L ABG pO2 86 88 [place] Test N/A Positive Respiration Rate 14 O2 Delivery Device Adult Vent Adult Vent Vent Mode AC CPAP/PS Tidal Volume 450 POC PEEP 5 5 POC Pressure Suppt 5 Crit Call To/Read Back Yes Blood Gas Notified Whom Dr Olmedo Radiology Impression Brain CT 03/19/21 01:27 IMPRESSION: Diffusely blunted sebastian-white matter differentiation is suspicious for developing generalized cerebral edema. Suspect tiny subdural hematoma over the right opercular area. Electronically Signed: Golden Lam MD at 3:08 EDT Tel , Service support , Chest X-Ray 03/19/21 01:27 IMPRESSION: Endotracheal tube terminates between the clavicle heads. Enteric tube terminates over the GE junction. Right IJ central catheter terminates over the mid to lower SVC. Bilateral perihilar opacities may be edema secondary to recent cardiac arrest. Electronically Signed: Golden Lam MD at 3:29 EDT Tel , Service support , Charges/Coding Procedures Hospitalists Procedures: [id number] Critial Care 1st Hr
[2021-03-19 06:59] LABS: CPK Total, Creatine Kinase 2364 U/L (39-308)
[2021-03-19 07:18] LABS: Lactic Acid 5.5 mmol/L (0.4-1.9)
--- NOTE | 2021-03-19 08:04 | CON.PCM.CA_ITS ---
Assessment & Plan Assessment/Plan (1) Cardiac arrest with successful resuscitation: PLAN: Patient is status post cardiopulmonary arrest with successful resuscitation. He is currently intubated and has been having paroxysms of wide- complex tachycardia. He will thus remain on the amiodarone intravenously. Would also continue with supportive therapy. Depending on the findings as well as seen his neurological progress further recommendations will be made. Thank you for allowing me to participate in the care of your patient. Please don't hesitate to call if any issues arise. HPI Consult Data Date of Consult: 03/19/21 HPI Narrative HPI Narrative: THOMAS ST, is a 71 M who presented to the emergency room in cardiac arrest. He apparently has a past medical history significant for hypertension and hyperlipidemia. His apparently noted that he was snoring louder than usual and then realized that he was unresponsive. EMS was called they did not feel a pulse they started CPR including giving a round of epinephrine, amiodarone and at least 1 episode of defibrillation. He was initially noted to be in pulseless electrical activity and was also administered sodium bicarb. In the emergency room he was intubated and not responsive. CT scan demonstrated evidence of generalized cerebral edema his EKG initially demonstrated sinus rhythm with nonspecific changes but later on appears to have diffuse ST depression inferolaterally. He was transferred to the intensive care unit cardiology was called to evaluate him. At this particular time he is in tubated. No further history is available. [facility] Medical History Arrhythmia HLD (hyperlipidemia) Hypertension Home Medications atorvastatin 20 mg PO DAILY 03/19/21 [History Last Taken Unknown] diltiazem HCl 240 mg PO DAILY 03/19/21 [History Last Taken Unknown] lisinopril 40 mg PO DAILY 03/19/21 [History Last Taken Unknown] spironolactone 25 mg PO DAILY 03/19/21 [History Last Taken Unknown] tadalafil 5 mg PO DAILY 03/19/21 [History Last Taken Unknown] Allergy/AdvReac Type Severity Reaction Status Date / Time No Known Allergies Allergy Verified 03/19/21 01:30 Family History Mother Hypertension Father Heart disease Surgical History No history of previous surgery Social History household members: spouse Smoking Status: Never smoker alcohol intake: current alcohol intake frequency: holidays/special occasions only substance use type: does not use ROS ROS Narrative Review of systems is unobtainable but based on the history immediately prior to the above from the the below is apparent. Constitutional Constitutional: Denies fever(s) or weight loss Eyes Eyes: Reports systems reviewed and no addt'l complaints, except as documented ENT HEENT: Reports systems reviewed and no addt'l complaints, except as documented Cardiovascular Cardiovascular: Denies chest pain at rest, chest pain with activity, dyspnea at rest, dyspnea on exertion, edema, palpitations or paroxysmal nocturnal dyspnea Respiratory/Chest Respiratory/Chest: Denies dyspnea on exertion, productive cough, shortness of breath at rest or shortness of breath with exertion Gastrointestinal Gastrointestinal: Denies change in bowel habits, nausea, vomiting or weight changes Genitourinary Genitourinary: Denies difficulty urinating Musculoskeletal Musculoskeletal: Denies joint stiffness or muscle weakness Integumentary Integumentary: Denies lesions Neurologic Neurologic: Denies dizziness or syncope Psychiatric Psychiatric: Denies anxiety Endocrine Endocrinology: Denies excessive sweating or fatigue Hematologic/Lymphatic Hematologic/Lymphatic: Denies anemia Allergic/Immunologic Allergic/Immunologic: Denies seasonal rhinorrhea Physical Exam Const alert, oriented x3 and no apparent distress General Appearance: cooperative HEENT hearing grossly normal bilaterally Head and Scalp: atraumatic Eyes EOMs intact bilaterally Neck General: normal visual inspection Chest inspection of chest normal and palpation of chest normal Resp normal respiratory effort Auscultation: clear to auscultation bilaterally Cardio regular rate, regular rhythm, S1 normal heart sound and S2 normal heart sound Jugular Venous Distention: JVD GI normal to inspection, nondistended, normoactive bowel sounds Extremity normal capillary refill and no pedal edema Peripheral Pulses: Yes pulses 2+ throughout and femoral pulses present Skin no rashes or lesions noted Neuro oriented x3 and CN's II-XII intact bilaterally Psych Appearance: grossly normal and appropriate Risk Stratification Risk Stratification Applicable: No Objective Data Vital Signs: Vital Signs Temp Pulse Resp BP Pulse Ox 94.5 F L 87 15 107/65 98 03/19/21 06:44 03/19/21 06:44 03/19/21 06:44 03/19/21 07:27 03/19/21 06:44 Oxygen Delivery Method Mechanical Ventilator Weight: 169 lb 1.513 oz Body Mass Index (BMI) 24.3 Intake & Output: Intake and Output for Last 24 Hours 03/17/21 03/18/21 03/19/21 23:59 23:59 23:59 Intake Total 1429.00 / 1429.00 Output Total 0 / 0 Balance 1429.00 / 1429.00 Lab / Micro Data Result Diagrams: 03/19/21 05:15 03/19/21 05:15 Labs: Laboratory Results - last 24 hr 03/19/21 00:55: WBC 4.7, RBC 4.08 L, Hgb 12.1 L, Hct 40.0, MCV 98.0 H, MCH 29.7, MCHC 30.3 L, RDW Std Deviation 45.4 H, RDW Coeff of Syd 12.7, Plt Count 116 L, MPV 11.0, Immature Gran % (Auto) 1.700 H, Neut % (Auto) 15.8 L, Lymph % (Auto) 73.2 H, [place] % (Auto) 8.9, Eos % (Auto) 0.2, Baso % (Auto) 0.2, Absolute Neuts (auto) 0.8 L, Absolute Lymphs (auto) 3.47, Nucleated RBC % 0.4, Atypical Lymphocytes 1+ 03/19/21 00:55: PT 16.1 H, INR 1.4, APTT 47.6 H 03/19/21 00:55: Sodium 140, Potassium 3.8, Chloride 106, Carbon Dioxide 19.0 L, Anion Gap 15, BUN 31 H, Creatinine 1.91 H, Estim Creat Clear Calc 36.10, Est GFR (MDRD) Af Amer 45 L, Est GFR (MDRD) Non-Af 37 L, BUN/Creatinine Ratio 16.2, Glucose 338 H, Calcium 8.5, Total Bilirubin 0.20, AST 85 H, ALT 99 H, Alkaline Phosphatase 105, Troponin I High Sens 21, Total Protein 6.3 L, Albumin 2.6 L, Globulin 3.7, Albumin/Globulin Ratio 0.7 L 03/19/21 01:40: Lactic Acid 7.5 H* 03/19/21 02:15: Urine Color Yellow, Urine Clarity Clear, Urine pH 5.0, Ur Specific [place] 1.025, Urine Protein 30 H, Urine Glucose (UA) Normal, Urine Ketones Negative, Urine Occult Blood 250 H, Urine Nitrite Negative, Urine Bilirubin Negative, Urine Urobilinogen Normal, Ur Leukocyte Esterase 25 H, Urine RBC 0-5 SEEN, Urine WBC 0-5 SEEN, Ur Squamous Epith Cells 0 SEEN, Urine Bacteria 0 SEEN, Urine Mucus 1+ 03/19/21 02:49: Troponin I High Sens 2876 H* 03/19/21 05:15: Sodium 141, Potassium 4.5, Chloride 115 H, Carbon Dioxide 16.0 L , Anion Gap 10, BUN 31 H, Creatinine 2.13 H, Estim Creat Clear Calc 32.37, Est GFR (MDRD) Af Amer 40 L, Est GFR (MDRD) Non-Af 33 L, BUN/Creatinine Ratio 14.6, Glucose 243 H, Calcium 6.9 L, Magnesium 1.7, Total Bilirubin 0.30, AST 267 H, ALT 205 H, Alkaline Phosphatase 153 H, Total Protein 5.8 L, Albumin 2.3 L, Globulin 3.5, Albumin/Globulin Ratio 0.7 L, Triglycerides 101, Cholesterol 149, LDL Cholesterol 71, VLDL Cholesterol 20, HDL Cholesterol 58 03/19/21 05:15: Urine Opiates Screen NEGATIVE, Urine Methadone Screen NEGATIVE, Ur Barbiturates Screen NEGATIVE, Ur Phencyclidine Scrn NEGATIVE, Ur Amphetamines Screen NEGATIVE, U Methamphetamin-MDMA NEGATIVE, U Benzodiazepines Scrn NEGATIVE, Urine Cocaine Screen NEGATIVE, U Cannabinoids Screen NEGATIVE, Ur Drug Screen Comment 03/19/21 05:15: WBC 13.8 H, RBC 4.97, Hgb 14.8, Hct 45.6, MCV 91.8 D, MCH 29.8, MCHC 32.5 D, RDW Std Deviation 43.9, RDW Coeff of Syd 12.9, Plt Count 243, MPV 9.9, Immature Gran % (Auto) 2.200 H, Neut % (Auto) 83.8 H, Lymph % (Auto) 9.3 L, [place] % (Auto) 4.1, Eos % (Auto) 0.2, Baso % (Auto) 0.4, Absolute Neuts (auto) 11.6 H, Absolute Lymphs (auto) 1.28, Nucleated RBC % 0 03/19/21 05:15: MRSA (PCR) Negative 03/19/21 05:15: Total Creatine Kinase 2364 H 03/19/21 06:37: Lactic Acid 5.5 H* ABG Data ABG results: ABG 03/19/21 03/19/21 01:46 06:50 Specimen Type ART ART Sample Site R Radial L Radial pH 7.08 L* 7.23 L Bicarbonate Actual 14.7 L 11.2 L Total CO2 16 12 Base Excess -15 L -16 L O2 Saturation 92 L 95 O2 % 60 50 ABG pCO2 49.6 H 27.0 L ABG pO2 86 88 [place] Test N/A Positive Respiration Rate 14 O2 Delivery Device Adult Vent Adult Vent Vent Mode AC CPAP/PS Tidal Volume 450 POC PEEP 5 5 POC Pressure Suppt 5 Crit Call To/Read Back Yes Blood Gas Notified Whom Dr Olmedo Cardiology Labs/Tests 03/19/21 00:55: WBC 4.7, RBC 4.08 L, Hgb 12.1 L, Hct 40.0, MCV 98.0 H, MCH 29.7, MCHC 30.3 L, Plt Count 116 L, MPV 11.0, Immature Gran % (Auto) 1.700 H, Neut % (Auto) 15.8 L, Lymph % (Auto) 73.2 H, [place] % (Auto) 8.9, Eos % (Auto) 0.2, Baso % (Auto) 0.2, Absolute Neuts (auto) 0.8 L, Nucleated RBC % 0.4 03/19/21 00:55: PT 16.1 H, INR 1.4, APTT 47.6 H 03/19/21 00:55: Sodium 140, Potassium 3.8, Chloride 106, Carbon Dioxide 19.0 L, Anion Gap 15, BUN 31 H, Creatinine 1.91 H, Est GFR (MDRD) Af Amer 45 L, Est GFR (MDRD) Non-Af 37 L, BUN/Creatinine Ratio 16.2, Glucose 338 H, Calcium 8.5, Total Bilirubin 0.20 03/19/21 01:40: Lactic Acid 7.5 H* 03/19/21 01:46: pH 7.08 L*, Bicarbonate Actual 14.7 L, Base Excess -15 L, O2 Saturation 92 L, ABG pCO2 49.6 H, ABG pO2 86, [place] Test N/A 03/19/21 02:15: Urine Color Yellow, Urine Clarity Clear, Urine pH 5.0, Ur Specific [place] 1.025, Urine Protein 30 H, Urine Glucose (UA) Normal, Urine Ketones Negative, Urine Occult Blood 250 H, Urine Nitrite Negative, Urine Bilirubin Negative, Urine Urobilinogen Normal, Ur Leukocyte Esterase 25 H, Urine RBC 0-5 SEEN, Urine WBC 0-5 SEEN 03/19/21 05:15: Sodium 141, Potassium 4.5, Chloride 115 H, Carbon Dioxide 16.0 L , Anion Gap 10, BUN 31 H, Creatinine 2.13 H, Est GFR (MDRD) Af Amer 40 L, Est GFR (MDRD) Non-Af 33 L, BUN/Creatinine Ratio 14.6, Glucose 243 H, Calcium 6.9 L, Magnesium 1.7, Total Bilirubin 0.30, Triglycerides 101, Cholesterol 149, LDL Cholesterol 71, VLDL Cholesterol 20, HDL Cholesterol 58 03/19/21 05:15: WBC 13.8 H, RBC 4.97, Hgb 14.8, Hct 45.6, MCV 91.8 D, MCH 29.8, MCHC 32.5 D, Plt Count 243, MPV 9.9, Immature Gran % (Auto) 2.200 H, Neut % (Auto) 83.8 H, Lymph % (Auto) 9.3 L, [place] % (Auto) 4.1, Eos % (Auto) 0.2, Baso % (Auto) 0.4, Absolute Neuts (auto) 11.6 H, Nucleated RBC % 0 03/19/21 06:37: Lactic Acid 5.5 H* 03/19/21 06:50: pH 7.23 L, Bicarbonate Actual 11.2 L, Base Excess -16 L, O2 Saturation 95, ABG pCO2 27.0 L, ABG pO2 88, [place] Test Positive Rhythm: EKG: ECHO: Stress Test: Cardiac Cath: PCI: CT Surgery: Holter monitor: EPS: PPM: CXR: Chest CT Scan: Radiography Diagnostic Testing: Radiology Impression Brain CT 03/19/21 01:27 IMPRESSION: Diffusely blunted sebastian-white matter differentiation is suspicious for developing generalized cerebral edema. Suspect tiny subdural hematoma over the right opercular area. Electronically Signed: Golden Lam MD at 3:08 EDT Tel , Service support , Chest X-Ray 03/19/21 01:27 IMPRESSION: Endotracheal tube terminates between the clavicle heads. Enteric tube terminates over the GE junction. Right IJ central catheter terminates over the mid to lower SVC. Bilateral perihilar opacities may be edema secondary to recent cardiac arrest. Electronically Signed: Golden Lam MD at 3:29 EDT Tel , Service support ,
[2021-03-19 08:46] LABS: Hemoglobin A1c 5.5 % (3.8-5.6)
[2021-03-19 08:57] LABS: Troponin-I HS 29862 pg/mL (3.0-78.0)
--- NOTE | 2021-03-19 09:13 | NURSING ---
& daughter @ bedside removed 2 rings & has them in her possession
--- NOTE | 2021-03-19 09:55 | PCS.PANDOC ---
PANDEMIC DOCUMENTATION INITIATED: Date: 01/13/2021 Time: 190
[2021-03-19] MEDS: CHLORHEXIDINE GLUC 2% CLOTH 1 EACH TOWELETTE TOPICAL (10:25)
--- NOTE | 2021-03-19 11:16 | NURSING ---
[employer] here to review chart
[2021-03-19 12:11] LABS: Bedside Glucose 135 mg/dL (70-110)
[2021-03-19] MEDS: Acetaminophen 325 MG Tablet 650 MG PO (12:37)
--- NOTE | 2021-03-19 12:54 | CON.PCM.GI_ITS ---
HPI Consult Data Date of Consult: 03/19/21 HPI Narrative HPI Narrative: THOMAS ST, is a 71 M who presents from home via EMS in cardiac arrest. states that she heard the patient snoring louder than usual. She went back to check on him and noticed he was unresponsive. She attempted to feel for a pulse and could not find any. She called 911 and upon E MS arrival patient was found to be unresponsive and pulseless. EMS followed ACLS protocols and defibrillated the patient for V. fib. Patient returned to PEA after defibrillation. EMS administered multiple doses of epinephrine. CPR was in progress when EMS arrived to the emergency department. He was intubated in emergency room. Due to persistent hypotension he was started on pressor therapy. His initial biochemical profile :CBC with WBC 4.7, hemoglobin 12.1, platelet 116 with left shift, coags with PT 16.1, INR 1.4, PTT 47.6, ABG with pH 7.08, bicarb 14.7, O2 saturation 92%, PCO2 49.6, PO2 86, CMP with carbon oxide 19, BUN/creatinine 31/1.91, glucose 338, lactic acid 7.5, AST/ALT 85/99. I was called for evaluation because he started developing bright red blood through the OG tube that was placed. His initial hemoglobin was 12.9. Currently is last hemoglobin was 14.6. He has about 200 cc of maroonish blood in his OG tube. He is intubated and sedated and still on pressor therapy at this time. He had a CT scan of the brain. The findings displayed diffusely blunted sebastian-white matter differentiation is suspicious for developing generalized cerebral edema. Suspect tiny subdural hematoma over the right opercular area. [facility] Medical History Arrhythmia HLD (hyperlipidemia) Hypertension Home Medications atorvastatin 20 mg PO DAILY 03/19/21 [History Last Taken Unknown] diltiazem HCl 240 mg PO DAILY 03/19/21 [History Last Taken Unknown] lisinopril 40 mg PO DAILY 03/19/21 [History Last Taken Unknown] spironolactone 25 mg PO DAILY 03/19/21 [History Last Taken Unknown] tadalafil 5 mg PO DAILY 03/19/21 [History Last Taken Unknown] Allergy/AdvReac Type Severity Reaction Status Date / Time No Known Allergies Allergy Verified 03/19/21 01:30 Family History Mother Hypertension Father Heart disease Surgical History No history of previous surgery Social History household members: spouse Smoking Status: Never smoker alcohol intake: current alcohol intake frequency: holidays/special occasions only substance use type: does not use ROS ROS Narrative Patient is not able to give a review of systems because he is intubated and sedated Physical Exam HEENT hearing grossly normal bilaterally Head and Scalp: normal to inspection Face and Sinus: face symmetric Nose: external nose normal Mouth: oral and palatal mucosa normal Eyes conjunctivae normal General Eye: normal appearance of both eyes Neck full ROM General: normal visual inspection Lymph Lymphatic: no lymphadenopathy noted Chest inspection of chest normal and palpation of chest normal Chest: symmetrical chest wall rise Resp normal respiratory effort GI non-distended Percussion: normal to percussion Rectal Exam: deferred Lab / Micro Data Result Diagrams: 03/19/21 05:15 03/19/21 05:15 Labs: Laboratory Results - last 24 hr 03/19/21 00:55: WBC 4.7, RBC 4.08 L, Hgb 12.1 L, Hct 40.0, MCV 98.0 H, MCH 29.7, MCHC 30.3 L, RDW Std Deviation 45.4 H, RDW Coeff of Syd 12.7, Plt Count 116 L, MPV 11.0, Immature Gran % (Auto) 1.700 H, Neut % (Auto) 15.8 L, Lymph % (Auto) 73.2 H, Meeker % (Auto) 8.9, Eos % (Auto) 0.2, Baso % (Auto) 0.2, Absolute Neuts (auto) 0.8 L, Absolute Lymphs (auto) 3.47, Nucleated RBC % 0.4, Atypical Lymphocytes 1+ 03/19/21 00:55: PT 16.1 H, INR 1.4, APTT 47.6 H 03/19/21 00:55: Sodium 140, Potassium 3.8, Chloride 106, Carbon Dioxide 19.0 L, Anion Gap 15, BUN 31 H, Creatinine 1.91 H, Estim Creat Clear Calc 36.10, Est GFR (MDRD) Af Amer 45 L, Est GFR (MDRD) Non-Af 37 L, BUN/Creatinine Ratio 16.2, Glucose 338 H, Calcium 8.5, Total Bilirubin 0.20, AST 85 H, ALT 99 H, Alkaline Phosphatase 105, Troponin I High Sens 21, Total Protein 6.3 L, Albumin 2.6 L, Globulin 3.7, Albumin/Globulin Ratio 0.7 L 03/19/21 01:40: Lactic Acid 7.5 H* 03/19/21 02:15: Urine Color Yellow, Urine Clarity Clear, Urine pH 5.0, Ur Specific Doucette 1.025, Urine Protein 30 H, Urine Glucose (UA) Normal, Urine Ketones Negative, Urine Occult Blood 250 H, Urine Nitrite Negative, Urine Bilirubin Negative, Urine Urobilinogen Normal, Ur Leukocyte Esterase 25 H, Urine RBC 0-5 SEEN, Urine WBC 0-5 SEEN, Ur Squamous Epith Cells 0 SEEN, Urine Bacteria 0 SEEN, Urine Mucus 1+ 03/19/21 02:49: Troponin I High Sens 2876 H* 03/19/21 05:15: Sodium 141, Potassium 4.5, Chloride 115 H, Carbon Dioxide 16.0 L , Anion Gap 10, BUN 31 H, Creatinine 2.13 H, Estim Creat Clear Calc 32.37, Est GFR (MDRD) Af Amer 40 L, Est GFR (MDRD) Non-Af 33 L, BUN/Creatinine Ratio 14.6, Glucose 243 H, Calcium 6.9 L, Magnesium 1.7, Total Bilirubin 0.30, AST 267 H, ALT 205 H, Alkaline Phosphatase 153 H, Total Protein 5.8 L, Albumin 2.3 L, Globulin 3.5, Albumin/Globulin Ratio 0.7 L, Triglycerides 101, Cholesterol 149, LDL Cholesterol 71, VLDL Cholesterol 20, HDL Cholesterol 58 03/19/21 05:15: Urine Opiates Screen NEGATIVE, Urine Methadone Screen NEGATIVE, Ur Barbiturates Screen NEGATIVE, Ur Phencyclidine Scrn NEGATIVE, Ur Amphetamines Screen NEGATIVE, U Methamphetamin-MDMA NEGATIVE, U Benzodiazepines Scrn NEGATIVE, Urine Cocaine Screen NEGATIVE, U Cannabinoids Screen NEGATIVE, Ur Drug Screen Comment 03/19/21 05:15: WBC 13.8 H, RBC 4.97, Hgb 14.8, Hct 45.6, MCV 91.8 D, MCH 29.8, MCHC 32.5 D, RDW Std Deviation 43.9, RDW Coeff of Syd 12.9, Plt Count 243, MPV 9.9, Immature Gran % (Auto) 2.200 H, Neut % (Auto) 83.8 H, Lymph % (Auto) 9.3 L, Meeker % (Auto) 4.1, Eos % (Auto) 0.2, Baso % (Auto) 0.4, Absolute Neuts (auto) 11.6 H, Absolute Lymphs (auto) 1.28, Nucleated RBC % 0 03/19/21 05:15: Hemoglobin A1c 5.5 03/19/21 05:15: MRSA (PCR) Negative 03/19/21 05:15: Total Creatine Kinase 2364 H 03/19/21 06:37: Lactic Acid 5.5 H* 03/19/21 08:00: Troponin I High Sens 85772 H* 03/19/21 12:06: POC Glucose 135 H Micro: Microbiology 03/19/21 02:50 Sputum, Tracheal Aspirate Gram Stain - Final ABG Data ABG results: ABG 03/19/21 03/19/21 01:46 06:50 Specimen Type ART ART Sample Site R Radial L Radial pH 7.08 L* 7.23 L Bicarbonate Actual 14.7 L 11.2 L Total CO2 16 12 Base Excess -15 L -16 L O2 Saturation 92 L 95 O2 % 60 50 ABG pCO2 49.6 H 27.0 L ABG pO2 86 88 Jefferson Test N/A Positive Respiration Rate 14 O2 Delivery Device Adult Vent Adult Vent Vent Mode AC CPAP/PS Tidal Volume 450 POC PEEP 5 5 POC Pressure Suppt 5 Crit Call To/Read Back Yes Blood Gas Notified Whom Dr Olmedo Radiology Impression Brain CT 03/19/21 01:27 IMPRESSION: Diffusely blunted sebastian-white matter differentiation is suspicious for developing generalized cerebral edema. Suspect tiny subdural hematoma over the right opercular area. Electronically Signed: Golden Lam MD at 3:08 EDT Tel , Service support , Chest X-Ray 03/19/21 01:27 IMPRESSION: Endotracheal tube terminates between the clavicle heads. Enteric tube terminates over the GE junction. Right IJ central catheter terminates over the mid to lower SVC. Bilateral perihilar opacities may be edema secondary to recent cardiac arrest. Electronically Signed: Golden Lam MD at 3:29 EDT Tel , Service support , Echocardiogram 03/19/21 04:43 Interpretation Summary Normal LV size. Left ventricular systolic function is hyperdynamic. The estimated ejection fraction is 70 %. The study was technically limited. The study was technically difficult. Contrast injection was performed. Ordering Physician: Malorie Fonseca Referring Physician: out of [facility] Performed By: Jose Yang RCS Assessment & Plan Assessment/Plan (1) GI bleed: QUALIFIERS: GI bleed type/associated pathology: unspecified gastrointestinal hemorrhage type Qualified Code(s): K92.2 - Gastrointestinal hemorrhage, unspecified PLAN: After reviewing the chest x-ray the OG tube is at the level of the GE junction. He likely had a small Lazara-Busby tear at the level of the GE junction. That is the likely area where he bled. Also the differential diagnosis could be stress gastritis associated with cardiac arrest creating ulcerations of the stomach. He is on PPI therapy. His hemoglobin seems to be stable at this time. If his hemoglobin drops we may need to pursue an upper endoscopy for a therapeutic procedure. At this time because he is stable from a GI standpoint I would not pursue a diagnostic endoscopy at this time. (2) Shock liver: PLAN: His liver enzymes are up and is likely secondary to ischemic hepatitis from either poor perfusion or from cardiac pulmonary resuscitation. I will check INR, LDH. I expect his enzymes to go up along with his bilirubin. However I would not recommend any other treatment at this time. Charges/Coding Visit Charges Inpatient E&M: 75417 Init Hosp L3
--- NOTE | 2021-03-19 13:06 | NURSING ---
temp 101.9 tylenol given put pt on cooling blanket
[2021-03-19] MEDS: 0.9% Saline Lock 10 ML Syringe IV (13:53)
--- NOTE | 2021-03-19 14:07 | PCM.RX.CS ---
Consult Pharmacy has been consulted to manage selected antiobiotic: Vancomycin Type of Consult: New start Labs: Sodium 141 mmol/L (136-145) 03/19/21 05:15 Potassium 4.5 mmol/L (3.5-5.1) 03/19/21 05:15 Chloride 115 mmol/L (98-107) H 03/19/21 05:15 Carbon Dioxide 16.0 mmol/L (21.0-32.0) L 03/19/21 05:15 Anion Gap 10 (5-15) 03/19/21 05:15 BUN 31 mg/dL (7-18) H 03/19/21 05:15 Creatinine 2.13 mg/dL (0.70-1.30) H 03/19/21 05:15 Est GFR (MDRD) Af Amer 40 mL/min (>60) L 03/19/21 05:15 Est GFR (MDRD) Non-Af 33 mL/min (>60) L 03/19/21 05:15 BUN/Creatinine Ratio 14.6 RATIO (-) 03/19/21 05:15 Glucose 243 mg/dL (74-106) H 03/19/21 05:15 Microbiology: Microbiology 03/19/21 02:50 Sputum, Tracheal Aspirate Gram Stain - Final Weight used for dosin.7 kg Estimated Creatinine Clearance: 32ML/MIN Goal Trough: 15-20 mcg/mL Pharmacy Plan for Drug Dosing: Give initial loading dose (25mg/kg) of 2000mg IV x1, then continue with 1000mg IV q24h per [facility] dosing protocol. Will check a trough level before the 3rd dose. Pharmacy Service will continue to monitor and adjust dosing as required. Follow-Up Labs: Trough Vancomycin Labs to be done on [date and time ordered]: 03/21/21 13:30
[2021-03-19 14:46] LABS: Thyroid Stim Hormone (TSH) 1.42 uIU/mL (0.358-3.74)
--- NOTE | 2021-03-19 15:00 | CT_ITS ---
STUDY: CT BRAIN WITHOUT CONTRAST REASON FOR EXAM: Male, 71 years old. Mental status change RADIATION DOSAGE (If Supplied By Facility): CTDIvol = ( 44.99 ) mGy, DLP = ( 863.60 ) mGycm TECHNIQUE: Transaxial CT imaging of the brain was performed without administration of intravenous contrast material. Individualized dose optimization techniques were used for this CT. COMPARISON: Comparison is made with prior examination done earlier today. FINDINGS: Normal soft tissue structures. Normal calvarium. Since prior study, there is evidence of progressive diffuse cerebral edema. There is also evidence of edema involving the cerebellum. Focal areas of decreased attenuation also seen in the medial aspect of the occipital lobes bilaterally suggestive of possible early infarcts. Findings are in keeping with the diffuse cerebral edema. There is no intracranial hemorrhage. There are no findings of an acute ischemic infarction. Normal visualized paranasal sinuses. CT/Brain/Head without Contrast IMPRESSION: Diffuse cerebral edema worse as compared to prior study. Cerebellar edema as well. Electronically Signed: Alec Smith MD at 15:48 EDT , Service support ,
--- NOTE | 2021-03-19 15:09 | NURSING ---
repositioned bp 68/42 levo increased to [address] valencia informed to start vasotec, no longer taking breaths on own , vent changes tv 500, ac14, peep 5 fio[address] head, called Libby informed of changes advised to come to hospital [facility]
--- NOTE | 2021-03-19 15:35 | NURSING ---
levo increased vasopressin started, to ct scan with resp therapist rn x2, awaiting arrival of family
[2021-03-19 17:10] LABS: Bedside Glucose 118 mg/dL (70-110)
--- NOTE | 2021-03-19 17:46 | PCM.HOSP.N ---
Hospitalist Note Patient was evaluated early this morning. He was admitted at approximately 4 AM after suffering from an out of hospital arrest that evidently was ventricular fibrillation and deteriorated into PEA. He was found unresponsive by his in bed. He evidently went to bed last night and read a book in a short time later she could hear him from down the hallway snoring very loudly she went to check on him and noted he was slumped over in bed and unresponsive. He had a known history of atrial fibrillation. His downtime was unknown certain. ACLS was initiated and he was transferred to the ED with CPR still in progress. ROSC was achieved and the patient was noted to be hypotensive, hypothermic, and hypoxic. He has marked laboratory abnormalities including acute kidney injury and shock liver along with troponin elevation at 2876. His tox was negative. A CT in the emergency department revealed sebastian and white matter attenuation changes concerning for edema. He was started on IV hydration and amiodarone given his ventricular fibrillation arrest and initiated on vasopressor support to maintain hemodynamic stability. Upon my exam his pupils are fixed and dilated but he is breathing over the ventilator with noted intermittent Shivam-Garces respirations. Brain could not be declared this he was still hypothermic and breathing over the ventilator. An echocardiogram was done early this morning and found to have an EF of 70%. His overall prognosis appears to be quite poor as I anticipate devastating neurological sequelae given his current exam. We will continue with supportive care as CODE STATUS has been changed to DNR CCA at this time. And continue to evaluate him for any neurological changes.
[2021-03-20] VITALS (15 sets, daily range): BP systolic 150–168; BP diastolic 71–83; PULSE 80–117; RESP 14–24; TEMP 36.3–37.4; O2SAT 89–100
[2021-03-20] MEDS: Chlorhexidine 15 ML PO ×2 (00:11→10:20)
[2021-03-20] MEDS: Atorvastatin Calcium 20 MG Tablet PO (00:11)
[2021-03-20] MEDS: Insulin Lispro 100 UNIT/ML INSULN.PEN SC (00:14)
[2021-03-20 00:56] LABS: Bedside Glucose 162 mg/dL (70-110)
--- NOTE | 2021-03-20 05:41 | PN.CC_ITS ---
Assessment & Plan Assessment/Plan (1) Cardiac arrest with successful resuscitation: PLAN: RECOMMENDATIONS: 1. Continue current supportive measures including invasive mechanical ventilatory support. 2. Continue PPI therapy twice daily. Continue to hold on tube feed initiation for now. 3. Continue Levophed and vasopressin to maintain hemodynamic stability. 4. Continue amiodarone as ordered. 5. Continue to avoid all sedating medications. 6. Ongoing goals of care discussion with the patient's family. IMPRESSIONS: 1. Acute combined respiratory failure status post cardiac arrest The patient presented with an out of hospital V. fib cardiac arrest. The patient was subsequently intubated as a consequence of the aforementioned. The patient will be continued on invasive mechanical ventilatory support with FiO2 weaned as tolerated to maintain saturations at or above 90%. 2. 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 This has been discussed with the patient's family at length. Overall prognosis appears quite poor. We will continue to hold all sedating medications. 3. Distributive shock Unclear etiology for the patient's hypotension. Although initially felt to be most likely cardiac in nature, subsequent echocardiogram revealed intact systolic function. The patient will remain on vasopressors in an attempt to maintain hemodynamic stability. Antimicrobials were initiated yesterday after cultures were obtained. 4. Multisystem organ dysfunction/lactic acidemia/metabolic acidosis Likely secondary to hemodynamic instability in the setting of #1 and #3. Continue current supportive measures including vasopressor support in an attempt to maintain hemodynamic stability. Continue to monitor liver and renal function accordingly. 5. Possible upper GI bleed The patient was noted to have bright red blood from his OG tube upon placement. However, at the present time, his blood counts are stable. We will continue PPI therapy twice daily as ordered. Continue to monitor H&H daily. There is no indication for urgent transfusion of blood products at this time. 6. History of paroxysmal atrial fibrillation/hypertension/hyperlipidemia Complicates care, management, recovery and prognosis. Continue to hold home medications for now. Continue to hold on initiation of tube feeds, given concern for upper GI bleed. CODE status: Discussed CODE status at length including difference between FULL code, DNR-CCA and DNR-CC status. Following discussions about the differences in these status, patient's family requested DNR CCA CODE STATUS. TIME: 85 minutes of critical care time, independent of procedures, was spent addressing the patient's acute combined respiratory failure status post cardiac arrest, encephalopathy, cardiogenic versus distributive shock, multisystem organ dysfunction, possible upper GI bleed, review of all data and collaboration with the care team. ([id number], [id number]) Subjective Subjective The patient was seen and examined at the bedside this morning. Events from the last 24 hours have been reviewed. Yesterday, the patient went from being hypothermic to developing a high-grade fever. He was subsequently placed on empiric antimicrobials. In addition, at one point during the day yesterday, the patient was no longer tolerant of pressure support mode of ventilation and had to be transition back to assist control. With the change noted in his respiratory status and pattern, a repeat CT head was obtained, which demonstrated progressive diffuse cerebral edema along with decreased attenuation in the medial aspect of the occipital lobes bilaterally concerning for possible early infarct. The patient no longer attempts to make spontaneous breaths on his own when placed on pressure support mode of ventilation. The patient remains on a combination of Levophed and vasopressin to maintain hemodynamic s tability. I did have extensive conversations with the patient's family along with interaction with life bank, as the patient's family was interested in pursuing organ donation. The patient's ventilator parameters were augmented to encourage offloading of CO2 in order to compensate for the patient's metabolic derangements and attempt to normalize his pH, in preparation for apnea testing (brain protocol). Nevertheless, prior to normalizing the patient's pH, the patient's family had another discussion with life bank and ultimately decided not to proceed with organ donation. Instead, they're electing to pursue termination of life support and initiation of comfort care measures. Objective Data Objective Data The patient's most recent lab work, culture data and imaging studies have all been personally reviewed. Surface echocardiogram revealed a hyperdynamic LV with an ejection fraction of 70%. Blood and sputum cultures are pending. Vital Signs: Vital Signs Temp Pulse Resp BP Pulse Ox 96.9 F L 101 H 14 155/71 H 94 03/19/21 23:00 03/20/21 03:49 03/20/21 03:49 03/19/21 23:00 03/20/21 03:49 Oxygen Delivery Method Mechanical Ventilator Weight: 76.7 kg Body Mass Index (BMI) 24.3 Intake & Output: Intake and Output for Last 24 Hours 03/18/21 03/19/21 03/20/21 23:59 23:59 23:59 Intake Total 3918.96 / 4035.26 262.82 / 262.82 Output Total 70 / 245 430 / 430 Balance 3848.96 / 3790.26 -167.18 / -167.18 Lab / Micro Data Result Diagrams: 03/20/21 09:30 03/20/21 09:30 Labs: Laboratory Results - last 24 hr 03/19/21 05:15: Sodium 141, Potassium 4.5, Chloride 115 H, Carbon Dioxide 16.0 L , Anion Gap 10, BUN 31 H, Creatinine 2.13 H, Estim Creat Clear Calc 32.37, Est GFR (MDRD) Af Amer 40 L, Est GFR (MDRD) Non-Af 33 L, BUN/Creatinine Ratio 14.6, Glucose 243 H, Calcium 6.9 L, Magnesium 1.7, Total Bilirubin 0.30, AST 267 H, ALT 205 H, Alkaline Phosphatase 153 H, Total Protein 5.8 L, Albumin 2.3 L, Globulin 3.5, Albumin/Globulin Ratio 0.7 L, Triglycerides 101, Cholesterol 149, LDL Cholesterol 71, VLDL Cholesterol 20, HDL Cholesterol 58 03/19/21 05:15: Urine Opiates Screen NEGATIVE, Urine Methadone Screen NEGATIVE, Ur Barbiturates Screen NEGATIVE, Ur Phencyclidine Scrn NEGATIVE, Ur Amphetamines Screen NEGATIVE, U Methamphetamin-MDMA NEGATIVE, U Benzodiazepines Scrn NEGATIVE, Urine Cocaine Screen NEGATIVE, U Cannabinoids Screen NEGATIVE 03/19/21 05:15: Hemoglobin A1c 5.5 03/19/21 05:15: MRSA (PCR) Negative 03/19/21 05:15: Total Creatine Kinase 2364 H 03/19/21 06:37: Lactic Acid 5.5 H* 03/19/21 08:00: Troponin I High Sens 25227 H* 03/19/21 08:00: TSH 1.42 03/19/21 12:06: POC Glucose 135 H 03/19/21 17:03: POC Glucose 118 H 03/20/21 00:10: POC Glucose 162 H Micro: Microbiology 03/19/21 02:50 Sputum, Tracheal Aspirate Gram Stain - Final ABG Data ABG results: ABG 03/19/21 06:50 Specimen Type ART Sample Site L Radial pH 7.23 L Bicarbonate Actual 11.2 L Total CO2 12 Base Excess -16 L O2 Saturation 95 O2 % 50 ABG pCO2 27.0 L ABG pO2 88 Jefferson Test Positive O2 Delivery Device Adult Vent Vent Mode CPAP/PS POC PEEP 5 POC Pressure Suppt 5 Radiography Diagnostic Testing: Radiology Impression Echocardiogram 03/19/21 04:43 Interpretation Summary Normal LV size. Left ventricular systolic function is hyperdynamic. The estimated ejection fraction is 70 %. The study was technically limited. The study was technically difficult. Contrast injection was performed. Ordering Physician: Malorie Fonseca Referring Physician: out of town Performed By: Jose Yang RCS Brain CT 03/19/21 15:00 IMPRESSION: Diffuse cerebral edema worse as compared to prior study. Cerebellar edema as well. Electronically Signed: Alec Smith MD at 15:48 EDT , Service support , Physical Exam Const General Appearance: intubated and patient mechanically ventilated Orientation / Consciousness: obtunded Exam Limitations: altered mental status HEENT Mouth: endotracheal tube in place and OG tube in place Eyes Pupil: dilated and fixed Neck supple General: trachea midline Chest inspection of chest normal Resp Effort and Inspection: abnormal respiratory pattern Auscultation: diminished lung sounds; Negative for rales, rhonchi or wheezes Cardio S1 normal heart sound and S2 normal heart sound Rate: tachycardic GI normal to inspection, nondistended, normoactive bowel sounds Extremity no clubbing, cyanosis or edema Skin no rashes or lesions noted Neuro Neuro Narrative: The patient is currently comatose on the vent. There is no response to verbal or noxious stimulation. No gag reflex present. The patient does not initiate spontaneous breaths on his own. Charges/Coding Procedures Hospitalists Procedures: 45556 Critial Care 1st Hr Multi Select Codes Hospitalists' Procedures Procedures: 81983 Critial Care Addl 30 Min
[2021-03-20 09:37] LABS: Absolute Lymphocyte Count 0.89 X10^3/uL (0.83-4.51); Absolute Neutrophil Count 15.4 X10^3/uL (2.0-7.7); Basophil# 0.05 X10^3/uL; Basophil% 0.3 % (0-1); Eosinophil# 1.16 X10^3/uL; Hematocrit 41.4 % (40-54); Hemoglobin 13.3 g/dL (13.0-16.5); Lymphocyte # 0.89 X10^3/ul (0.83-4.51); Lymphocyte % 4.6 % (19-41); Mean Corp Hgb Conc 32.1 g/dL (32-36); Mean Corpuscular Hgb 29.6 pg (27.0-32.0); Mean Corpuscular Volume 92.2 fL (80-94); Mean Platelet Vol. 9.9 fl (6.2-12.0); Monocyte# 1.67 X10^3/uL; Monocyte% 8.7 % (0-10); NRBC Flagged by Analyzer 0 % (0-5); Neutrophil # 15.39 X10^3/uL (2.7-7.7); Neutrophil % 79.9 % (47-70); POSITIVE DIFFERENTIAL YES; POSITIVE MORPHOLOGY YES; Platelet Count 172 K/mm3 (150-450); RBC Distribution Width CV 13.2 % (11.6-14.6); RBC Distribution Width SD 45.3 fl (35.1-43.9); Red Blood Count 4.49 M/mm3 (4.6-6.2); White Blood Count 19.3 K/mm3 (4.4-11.0)
[2021-03-20 09:40] LABS: Differential Indicated SCAN CRITERIA MET
[2021-03-20 10:35] LABS: ALB/GLOB Ratio 0.5 RATIO (0.9-2.4); AST(SGOT) 207 U/L (15-37); Alanine Aminotransfer ALT/SGPT 129 U/L (16-61); Albumin, Serum 1.9 g/dL (3.2-5.0); Alkaline Phosphatase 87 U/L (45-117); Anion Gap 6 (5-15); BUN 55 mg/dL (7-18); Calcium,Total 6.1 mg/dL (8.5-10.1); Chloride 117 mmol/L (98-107); EST Glomerular Filtration Rate 13 mL/min (>60); Est Glom Filt Rate - Afr Amer 16 mL/min (>60); Estimated Creatinine Clearance 14.99 ml/min; Globulin 3.8 g/dL (2.2-4.2); Glucose 147 mg/dL (74-106); Potassium 6.9 mmol/L (3.5-5.1); Protein, Total 5.7 g/dL (6.4-8.2); Sodium Level 141 mmol/L (136-145)
[2021-03-20 12:19] LABS: International Normalized Ratio 1.4; Prothrombin Time (Protime)PT. 16.3 SECONDS (11.7-14.9)
[2021-03-20 12:38] LABS: Base Excess -11 mmol/L (-2 to +2); Blood Gas Specimen Type ART; FI02 60; Mode AC; PEEP 5; PO2 118 mmHG (75-100); RR 14; SITE L Radial; SO2 98 % (95-99); Total Carbon Dioxide 18 mmol/L; Vt 500; pCO2 42.6 mmHg (35-45); pH 7.21 (7.35-7.45)
--- NOTE | 2021-03-20 13:26 | CASEMGMT ---
Supply Chain Assistant spoke w/ in room, offered support. SW let know if any of the family would like to speak w/SW, SW is available. EUNICE Ellis
[2021-03-20 13:51] LABS: Base Excess -12 mmol/L (-2 to +2); Bicarbonate 14.8 mmol/L (22-26); Blood Gas Specimen Type ART; FI02 60; Mode AC; PEEP 5; PO2 168 mmHG (75-100); RR 20; SITE L Brach; SO2 99 % (95-99); Total Carbon Dioxide 16 mmol/L; Vt 550; pCO2 30.1 mmHg (35-45)
[2021-03-20] MEDS: Vancomycin IV 1,000 MG/200 ML BAG 200 MG IV (14:29)
[2021-03-20] MEDS: Acetaminophen 650 MG/20 ML UDC GT (14:29)
[2021-03-20 15:00] LABS: Base Excess -12 mmol/L (-2 to +2); Bicarbonate 13.9 mmol/L (22-26); Blood Gas Specimen Type ART; FI02 60; Mode AC; PEEP 5; PO2 179 mmHG (75-100); RR 22; SITE L Brach; SO2 100 % (95-99); Total Carbon Dioxide 15 mmol/L; Vt 600; pCO2 26.4 mmHg (35-45); pH 7.33 (7.35-7.45)
--- NOTE | 2021-03-20 15:07 | NURSING ---
Dr Menendez talking with Family they have decide to withdraw care, orders received
[2021-03-20 15:46] LABS: Bedside Glucose 141 mg/dL (70-110)
--- NOTE | 2021-03-20 16:44 | PCM.DEATH ---
Preliminary Cause of Preliminary Cause of Preliminary Cause of : Acute hypoxic respiratory failure secondary to cardiopulmonary arrest with unknown etiology and neurological devastation Date of Admission: 03/19/21 Principle Diagnosis Problem List: Active and Suspected Problems (Updated 03/19/21 @ 13:[address] Blanc Friend, DO) Shock liver (Acute) GI bleed (Acute) Cardiac arrest with successful resuscitation (Acute) Lactic acidosis (Acute) Acute kidney injury (Acute) Respiratory failure (Acute) Hospital Course Mr. Pimentel is a 71-year-old white male who presented to the emergency department at [facility] on 03/19/2021 and cardiac arrest. He presented with his who stated that he went up stairs to read and she was down the hallway and heard him snoring louder than usual. She went back to check on him and noted he was unresponsive. She attempted to fill for a pulse but could not find any and called 911 immediately. Upon arrival of the EMS he was found to be unresponsive and pulseless. ACLS protocol was initiated and the patient was found to be in V. fib. He was therefore defibrillated. After defibrillation his rhythm degenerated to PEA. Prior to emergency department arrival he received multiple rounds of epinephrine and CPR. The patient was intubated upon arrival to the emergency department. ROSC was obtained in the emergency department after multiple rounds of epinephrine, atropine, and sodium bicarbonate. He was started on a Levophed drip and had several runs of VT and was therefore placed on amiodarone drip. While in the emergency department a central venous catheter was placed in his right IJ. The patient was a admitted to the ICU. An echocardiogram done early on the day of admission showed a normal EF at 70% with hyperdynamic LV and no other abnormalities noted. His initial TTE of his brain on arrival done in the emergency department showed diffusely blunted sebastian-white matter differentiation that was suspicious for developing generalized cerebral edema and a suspected tiny subdural hematoma over the right opercular area. His chest x-ray showed bilateral perihilar opacities but was otherwise normal. His pupils were noted to be fixed and dilated but the patient was breathing over the ventilator at that time. An infectious work-up was performed and the patient was placed on empiric antibiotics on admission. He developed significant acute kidney injury and shock liver likely resulting from hypoperfusion. Later on the day of admission he developed changes that were concerning for herniation and a repeat CT of his head was performed and showed diffuse cerebral edema that has worsened as well as cerebellar edema. Discussion with family was had and the decision was made to withdraw care via terminal extubation. Life bank was involved. The patient at 1617 on 03/20/2021. Visit Charges Inpatient E&M: [id number] Disch Hosp
--- NOTE | 2021-03-20 17:00 | NURSING ---
extubated @ 1604 1617 family @ bedside
--- NOTE | 2021-03-20 17:01 | NURSING ---
per life banc request fluid given last 1 hour of life ns @ 15cc Levophed 50cc Vasopressin 5cc amio 30cc Zosyn 10 cc Vancomycin 50cc
[2021-03-21 15:36] LABS: Pathologist Review Reviewed
== END 2021-03-20 16:15 ==
LOC: ED 02:27 → ICU 04:15
PROVIDERS: Internal Medicine Critical Care Medicine; Admitting Provider Family Medicine; Emergency Provider Emergency Medicine; Visit Provider Internal Medicine
DX: I46.9 Cardiac arrest, cause unspecified (principal); I21.4 Non-ST elevation (NSTEMI) myocardial infarction; J96.01 Acute respiratory failure with hypoxia; J96.02 Acute respiratory failure with hypercapnia; G93.6 Cerebral edema; K72.00 Acute and subacute hepatic failure without coma; K22.6 Gastro-esophageal laceration-hemorrhage syndrome; I62.00 Nontraumatic subdural hemorrhage, unspecified; N17.9 Acute kidney failure, unspecified; D62 Acute posthemorrhagic anemia; G93.1 Anoxic brain damage, not elsewhere classified; E87.2 Acidosis; I47.2 Ventricular tachycardia; R73.9 Hyperglycemia, unspecified; D69.6 Thrombocytopenia, unspecified; E78.5 Hyperlipidemia, unspecified; I10 Essential (primary) hypertension; I48.0 Paroxysmal atrial fibrillation; R57.8 Other shock; I95.9 Hypotension, unspecified; I49.01 Ventricular fibrillation
CPT/HCPCS: 31500; 31720; 36600; 51702; 70450; 71045; 80053; 80061; 80307; 81001; 82550; 82803; 82962; 83036; 83605; 83735; 84443; 84484; 85025; 85610; 85730; 87040; 87070; 87205; 87641; 92950; 93005; 93306; 94002; 99285; J7030; J7040; J7050; Q9957; A4216; C1751; C8929; J3490